=== PATIENT | female | born 1970 | race Caucasian/White ===

== ENCOUNTER 2018-12-09 16:16 | Emergency (ER) | payer BC ==
--- NOTE | 2018-12-09 16:47 | ED.PDOC ---
History of Present Illness - General Chief Complaint: General Stated Complaint: Blurry/double vision, dizziness, high BP Time Seen by Provider: 12/09/18 16:42 Source: patient, RN notes reviewed, Vital Signs reviewed Additional Information: 48 YEAR OLD COMPLAINTS OF DIZZINESS ( FEEL LIKE INTOXICATED ) VISION ? 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 2-12 NORMAL NO MOTOR SENSORY DEFICIT DTR NORMAL NO SENSORY DEFICIT NO CEREBELLAR SIGNS - History of Present Illness Timing/Duration: 4-6 hours Severity: mild Improving Factors: nothing Worsening Factors: nothing Associated Symptoms: denies symptoms Allergies/Adverse Reactions: Allergies NO KNOWN ALLERGY Allergy (Verified 12/09/18 16:40) Home Medications: Ambulatory Orders Diazepam [Valium] 2 mg PO Q8HRS #30 tab 12/09/18 Meclizine HCl [Antivert] 25 mg PO TID #30 tab 12/09/18 Review of Systems - Review of Systems Constitutional: States: no symptoms reported EENTM: States: no symptoms reported Respiratory: States: no symptoms reported Cardiology: States: no symptoms reported Gastrointestinal/Abdominal: States: no symptoms reported Genitourinary: States: no symptoms reported Musculoskeletal: States: no symptoms reported Skin: States: no symptoms reported Neurological: States: no symptoms reported Endocrine: States: no symptoms reported Hematologic/Lymphatic: States: no symptoms reported Past Medical History (General) - Patient Medical History Hx Stroke: No Hx of COPD: No Hx Congestive Heart Failure: No Hx Diabetes: No Surgical History: Hysterectomy - Vaccination History Hx Tetanus, Diphtheria Vaccination: No Hx Influenza Vaccination: No Hx Pneumococcal Vaccination: No Immunizations Up to Date: - Pt states she believes the rest of her immunizations are current - Social History Hx Tobacco Use: No Hx Alcohol Use: Yes - occasional/social Hx Substance Use: No - Female History Patient is a Female of Child Bearing Age (10 -59 yrs old): Yes Family Medical History - Family History Mother Living Status: Hx Family Cancer: Yes Physical Exam - Physical Exam General Appearance: Alert, Comfortable Eye Exam: bilateral normal Ears, Nose, Throat: hearing grossly normal, normal ENT inspection, normal pharynx Neck: non-tender, full range of motion, supple, normal inspection Respiratory: chest non-tender, lungs clear, normal breath sounds, no respiratory distress, no accessory muscle use Cardiovascular/Chest: normal peripheral pulses, regular rate, rhythm, no edema, no gallop, no JVD, no murmur Peripheral Pulses: radial,right: 2+, radial,left: 2+, femoral,right: 2+, femoral,left: 2+, popliteal,right: 2+, popliteal,left: 2+ Back Exam: normal inspection, no CVA tenderness Extremity: normal range of motion, non-tender, normal inspection Skin Exam: normal color Progress - Results/Orders Results/Orders: 18 00 HOURS PATIENT FEELS BETTER BLOOD PRESSURE IS NORMAL VISUAL ACUITY 20/20 WILL DC HOME TO BE FOLLOWED BY HER PCP RETURN IF SYMPTOMS WORSEN Departure - Departure Clinical Impression: Benign positional vertigo Time of Disposition: 18:18 Disposition: Discharge to Home or Self Care Condition: Good Departure Forms: ED Discharge - Pt. Copy, Patient Portal Self Enrollment Referrals: COREEN SORENSEN MD [Primary Care Provider] - 1-2 Weeks Prescriptions: Diazepam [Valium] 2 mg PO Q8HRS #30 tab Meclizine HCl [Antivert] 25 mg PO TID #30 tab Home Medications: Ambulatory Orders Diazepam [Valium] 2 mg PO Q8HRS #30 tab 12/09/18 Meclizine HCl [Antivert] 25 mg PO TID #30 tab 12/09/18
[2018-12-09] MEDS: diazePAM 2 MG TAB PO ONE ×2 (16:51→16:53)
[2018-12-09] MEDS: MECLIZINE HCL 12.5 MG TAB PO ONE ×2 (16:51→16:52)
[2018-12-09 17:02] VITALS: TEMP 973.9
[2018-12-09 18:15] VITALS: BP 134/87; O2SAT 97
== END 2018-12-09 18:23 | disposition home or self-care (01) ==
LOC: ER 16:16
DX: H81.10 Benign paroxysmal vertigo, unspecified ear (principal)